=== PATIENT | female | born 1985 | race Caucasian/White ===

== ENCOUNTER 2025-06-09 11:23 | Outpatient (CLI) | payer BC, SELFPAY ==
--- OUTSIDE RECORDS SUMMARY | 2025-06-09 11:28 | XMS_ITS | Referral Summary ---
Author Organization [facility] Address [address] [place] [address] Care Team Providers Care Children Counselor Name Role Phone Other, Physician Nikita LOVING Primary Care Provi sylvain Unavailable Social History Tobacco Use Types Packs/Day Years Used Date Smoking Tobacco: Never Assessed Comments Unknown Sex and Gender Information Value Date Recorded Sex Assigned at Not on file Legal Sex Female 7:10 PM EDT Gender Identity Not on file Sexual Orientation Not on file Plan of Treatment Not on file Procedures Procedure Name Priority Date/Time Associated Diagnosis Comments CYTOLOGY DISASTER RECOVERY COORDINATOR Routine 01/04/2010 12:00 AM EDT from Last 3 Months or Most Recently Relevant to Health Maintenance Results * Cytology DISASTER RECOVERY COORDINATOR (01/04/2010 12:00 AM EDT) 01/04/2010 01/08/2010 9:1 9 AM EDT Narrative [facility] - 01/09/2010 3:12 PM EDT CYTOLOGY GYNECOLOGICAL REPORT Name: EMI JAMIL EPI#: [id number] Case #: [id number] Final Cytologic Diagnosis A. Cervical/Endocervical thinprep pap: Adequacy: Satisfactory for evaluation, endocervical transformation zone component present. Interpretation: Negative for intraepithelial lesion or malignancy. This specimen has been analyzed by the ThinPrep Imaging System (Text[employer].), an automated imaging and review system, which assists the immigration services officer and/or pathologist in evaluation of cells on Thinprep Pap tests. Electronically Signed Out By ADELAIDA Moreno(ASCP) Source of Specimen(s) A: Cervical/Endocervical thinprep pap Clinical History Date of Last Menstrual Period: 11/20/2009 Contraceptive History: OC/BCP Signed out at [facility], [address] [place] [address] [facility] Sporter[employer] Non-Formatted Report Louise Noland MD PATHOLOGY/CYTOLOGY ORDERA CLAIR Final Result [address] [address] from Last 3 Months or Most Recently Relevant to Health Maintenance Insurance [facility] [employer] [facility] [place] [id number] [employer] ALL OTHERS NOT MEDICARE [place] [id number] [employer] ALL OTHERS NOT MEDICARE Care Teams Children Counselor Relationship Specialty Start Date End Date Other, Physician MD Nikita PCP - General Internal Medicine 08/11/16
--- OUTSIDE RECORDS SUMMARY | 2025-06-09 11:28 | XMS_ITS | Encounter Summary ---
Author Organization [facility] [place] [address] Care Team Providers Care Correctional Corporal Name Role Phone Joel Heredia MD Unavailable Phillip Zamudio MD Primary Care Provider [phone] Ayana Curry APRN Primary Care Provider UnaPuja Snyder APRN Primary Care Provider [phone] Encounter Details Date Type Department Care Team (Late st Contact Info) Description 10/05/2019 Orders Only [facility] [address] [place] [id number] Yolanda Oropeza MD Social History Tobacco Use Types Packs/Day Years Used Date Smoking Tobacco: Never Smokeless Tobacco: Never Alcohol Use Standard Drinks/Week Comments No 0 (1 standard drink = 0.6 oz pur e alcohol) PHQ-2 Answer Date Recorded PHQ-2 Score 0 03/11/2019 Sexually Active Control Partners Comments Not Currently Male Comments No Sex and Gender Information Value Date Recorded Sex Assigned at Not on file Legal Sex Female 1:41 AM EDT Gender Identity Not on file Sexual Orientation Not on file documented as of this encounter Functional Status * Is the person deaf or does he/she have serious difficulty hearing? Answer Date of Assessment Author No 10/08/2018 2:48 PM Jeremy Kaur CMA * Is the person blind or does he/she have serious difficulty seeing even when wearing glasses? Answer Date of Assessment Author No 10/08/2018 2:48 PM Jeremy Kaur CMA * Does this person have serious difficulty walking or climbing stairs? Answer Date of Assessment Author No 10/08/2018 2:48 PM Jeremy Kaur CMA * Does this person have difficulty dressing or bathing? Answer Date of Assessment Author No 10/08/2018 2:48 PM Jeremy Kaur CMA * Because of a physical, mental or emotional condition, does this person have difficulty doing errands alone such as visiting a doctor's office or shopping? Answer Date of Assessment Author No 10/08/2018 2:48 PM Jeremy Kaur CMA documented as of this encounter Mental Status * Because of a physical, mental or emotional condition, does this person have serious difficulty concentrating, remembering or making decisions? Answer Entry Date Author No 10/08/2018 2:48 PM Jeremy Kaur CMA documented in this encounter Plan of Treatment Not on file documented as of this encounter Goals Goal Patient Goal Type Associated Problems Recent Progress Patient-Stated? Author Maintain a healthy diet, exercise regularly and maintain an ideal body weight General No Lyubov Sánchez, KALANI documented as of this encounter Procedures Procedure Name Priority Date/Time Associated Diagnosis Comments Advitech T&B TISSUE PANEL Routine 10/05/2019 7:53 AM EST documented in this encounter Results * Advitech T&B TISSUE PANEL (10/05/2019 7:53 AM EST) Pathologist [facility] [place] Result Diagnosis = Increased CD4:CD8 (7.4) without loss of barone-T-cell antigens. No flow immunophenotypic evidence of a B-cell lymphoproliferative disorder (see comments). Comments = B-cells are polyclonal and T-cells have no loss of T-cell antigens. The CD4:CD8 ratio is increased; this is a non-specific finding and can be seen in both reactive and neoplastic processes. There is no flow immunophenotypic evidence of a B-cell lymphoproliferative disorder. Hodgkin lymphoma, some large cell lymphomas, and non-hematopoietic tumors cannot be excluded by flow cytometry. Correlation with morphology, clinical history and other diagnostic information is recommended. Lymphocytes = T-cells (84% of lymphoid cells) show a CD4/CD8 ratio of about 7.8 without overt phenotypic abnormality. NK-cells (1% of lymphoid cells) are unremarkable. Mature B-cells (13% of lymphoid cells) are polyclonal (kappa:lambda 1.7). Monocytes = Monocytes co-express CD14 and CD64 without phenotypic abnormalities. Granulocytes = Granulocytes are phenotypically mature and without aberrant antigen expression. CD45 Dim = CD34+ cells are not detected. CD45 Neg = Non-hematopoietic cells, erythroids and cell debris. [facility] 10/05/2019 7:53 AM EST Narrative [facility] - 10/07/2019 10:10 AM EST Requesting Provider: Naveen Chand Specimen = [id number] Yolanda Oropeza MD PATHOLOGY ORDERABLES Final Res ult [facility] [address] [place] [address] documented in this encounter Visit Diagnoses Not on filedocumented in this encounter Additional Health Concerns Infection Onset Date Last Indicated Resolved Time R/O Influenza 10/05/2019 10/05/2019 10/06/2019 5:0 3 PM EST documented as of this encounter Care Teams Correctional Corporal Relationship Specialty Start Date End Date Phillip Zamudio MD [address] [place] [address] [place] [address] PCP - General Family Medicine 09/26/17 03/12/20 Ayana Curry, CUSHION ASSEMBLER [address] [place] [address] [place] [address] PCP - General Nurse Practitioner 03/13/2002/04 Puja Trujillo, BYRON [address] [place] [address] [place] [address] PCP - General Nurse Practitioner-Family 02/05/22 Joel Heredia MD [address] [place] [address] [place] [address] Physician Urology 12/17/15 documented as of this encounter
--- OUTSIDE RECORDS SUMMARY | 2025-06-09 11:28 | XMS_ITS | Clinical Summary ---
Author Organization [facility] Address [facility] [place] [address] Care Team Providers Care Highway Painter Helper Name Role Phone Hieu Padilla MD Primary Care Provider Aby Benitez Unavailable Unavailable Irvin Lyle MD Unavailable [phone] Allergies Active Allergy Reactions Criticality Noted Date Comments Ciprofloxacin Swelling 08/03/2020 FACE GETS HOT AND RED Topiramate Other (See Comments) 08/23/2020 FACE GETS RED Medications allopurinoL (ZYLOPRIM) 300 mg tablet Take 300 mg by mouth daily. Active CHOLECALCIFEROL , VITAMIN D3, PO Take 50,000 Units by mouth every 7 days (once weekly). Active acetaminophen (TYLENOL) 325 mg tablet Take 2 Tabs (650 mg total) by mouth every 6 hours. 60 Tab 1 0 Active ibuprofen (MOTRIN) 600 mg tablet Take 1 Tab (600 mg total) by mouth every 6 hours as needed for Pain. 60 Tab 1 0 Active polyethylene glycol (GLYCOLAX) 17 gram packet Take 1 Packet (17 g total) by mouth 2 times daily as needed. 14 Packet 1 0 Active Additional Information Patient not taking.Reported on 11/09/2023 montelukast (SINGULAIR) 10 mg Tablet Take 10 mg by mouth daily. Active loratadine (CLARITIN) 10 mg tablet Take 10 mg by mouth daily. Active cetirizine (ZyrTEC) 10 mg Tablet Take 10 mg by mouth daily. Active albuterol (VENTOLIN/PROAI R/PROVENTIL HFA) 90 mcg/actuation HFA Aerosol Inhaler Take 2 Puffs by inhalation every 6 hours. Active budesonide-glyc opyr-formoterol (Breztri Aerosphere) 160-9-4.8 mcg/actuation HFA Aerosol Inhaler Take 2 Inhalations by inhalation 2 times daily. Active omeprazole (PriLOSEC) 20 mg capsule Take 20 mg by mouth daily. Active fluticasone propionate (FLONASE) 50 mcg/actuation nasal spray 2 Sprays by EACH NOSTRIL route daily. 1 Each 4 Active levothyroxine (SYNTHROID) 75 mcg tablet Take 1 Tablet (75 mcg) by mouth daily. 30 Tablet 4 Active cyclobenzaprine (FLEXERIL) 5 mg tablet TAKE 1 TABLET BY MOUTH THREE TIMES DAILY FOR 5 DAYS NEEDED 3 Active levoFLOXacin (LEVAQUIN) 500 mg tablet Take 500 mg by mouth daily. Active Active Problems Problem Noted Date Diagnosed Date Chest pain, unspecified type 12/11/2023 Assessment & Plan (12/11/2023 11:47 AM EST): Atypical for CAD DDx = pleuritis vs pericarditis vs musculoskeletal -->assess inflammatory markers. If elevated, will elect to treat for possible pericardtis. If elevated will give high dose NSAIDs for 2 weeks and colchicine for 3 months. If negative and ongoing chest pain, will place on colchicine for 3 months. Family history of cardiomyopathy 12/11/2023 Assessment & Plan (12/11/2023 11:49 AM EST): -brother in his 40s with heart transplant at [facility] -I personally reviewed the images of her TTE from [facility] October 2023 showing: normal LV size and thickness, low normal LVEF 50%. Possible subtle and mild wall motion abnormality/hypokinesis of portion of the anterior, lateral wall. This is not obvious. -->we will obtain a cardiac MRI to assess biventricular function, assess for LGE and myocardial inflammation and assess the pericardium given her chest pain Mediastinal lymphadenopathy 12/11/2023 Assessment & Plan (12/11/2023 11:50 AM EST): -no known diagnosis of pulmonary sarcoidosis, though this has been entertained previously and had lymph node biopsies which were negative. -->cardiac MRI. Do not suspect sarcoidosis. Influenza A 11/04/2023 Status post laparoscopic hysterectomy 08/24/2020 Hypothyroidism (acquired) 10/15/20182023 Generalized anxiety disorder 07/02/2017 Family History Medical History Relation Name Comments Heart Surgery Brother Hypertension Father Hypertension Mother Other Mother brain aneurysm Anesthesia Complications Neg Hx Heart Problems Neg Hx Relation Name Status Comments Brother Father Mother Social History Tobacco Use Types Packs/Day Years Used Date Smoking Tobacco: Never Smokeless Tobacco: Never Tobacco Cessation:Counseling Given: No Comments:Not needed Alcohol Use Standard Drinks/Week Comments Not Currently 0 (1 standard drink = 0.6 oz pur e alcohol) occasional - rare Comments No Sex and Gender Information Value Date Recorded Sex Assigned at Not on file Legal Sex Female 5:56 PM EST Gender Identity Not on file Sexual Orientation Not on file Last Filed Vital Signs Vital Sign Reading Time Taken Comments Blood Pressure 100/68 12/11/2023 11:01 AM EST Pulse 76 12/11/2023 11:01 AM EST Temperature 36.6 C (97.8 F) 11/06/2023 11:40 AM EST Respiratory Rate 18 11/06/2023 11:40 AM EST Oxygen Saturation 94% 11/06/2023 11:40 AM EST Inhaled Oxygen Concentration - - Weight 85.3 kg (188 lb) 12/11/2023 11:01 AM EST Height 160 cm (5' 3 ) 12/11/2023 11:01 AM EST Body Mass Index 33.3 12/11/2023 11:01 AM EST Plan of Treatment Health Maintenance Due Date Last Done Comments Lipid Screening 2001 COVID-19 Vaccine ( season) 2024 01/10/2022, 08/02/2021, 11/14/2020, Additional history exists Depression Screening 10/19/2024 Influenza Vaccination (#1) 06/19/202507/10, 07/02/2018, 08/12/2016, Additional history exists Tetanus Vaccination (Every 10 Years) 02/19/2027 02/19/2017, 01/12/2015 Influenza Vaccination (Yearly) Discontinued 07/10/2021, 07/02/2018, 08/12/2016, Additional history exists HPV Vaccine Aged Out No longer eliluis enrique barrera based on patient's age to complete this [place] [address] [place] [address] [place] [address] ANTHEM Advance Directives For more information, please contact: [phone] * Full Code (Latest Code Status on File) Date Activated Date Inactivated Comments 11/04/2023 6:56 PM No automated c hest compression devices for VAD Patients * Full Code Date Activated Date Inactivated Comments 08/24/2020 2:06 PM 11/02/2023 5:08 PM No automated chest compression devices for VAD Patients Care Teams Highway Painter Helper Relationship Specialty Start Date End Date Hieu Padilla MD [address] [place] [address] [place] [address] PCP - General Family Medicine 08/18/20 Aby Benitez 09/17/21 Irvin Lyle MD [address] [place] [address] Obstetrics & Gynecology 10/26/22
--- OUTSIDE RECORDS SUMMARY | 2025-06-09 11:28 | XMS_ITS | Clinical Summary ---
Author Organization [facility] Address [address] [place] [address], [address] [place] [address] Care Team Providers Care Solar Panel Installer Name Role Phone Troy Webber MD Primary Care Provider Allergies No known active allergies Medications No known medications Immunizations Immunization Administration Dates Next Due Influenza Virus Vaccine 07/23/2010 Social History Tobacco Use Types Packs/Day Years Used Date Smoking Tobacco: Never Alcohol Use Standard Drinks/Week Comments Yes 0 (1 standard drink = 0.6 oz pur e alcohol) once everyother week Comments Unknown Sex and Gender Information Value Date Recorded Sex Assigned at Not on file Legal Sex Female 10:44 PM EST Gender Identity Not on file Sexual Orientation Not on file Last Filed Vital Signs Vital Sign Reading Time Taken Comments Blood Pressure 117/78 01/22/2011 2:27 PM EDT Pulse 93 01/22/2011 2:27 PM EDT Temperature 37.2 C (99 F) 01/22/2011 2:27 PM EDT Respiratory Rate 14 01/22/2011 2:27 PM EDT Oxygen Saturation 97% 01/22/2011 2:27 PM EDT Inhaled Oxygen Concentration - - Weight - - Height - - Body Mass Index - - Plan of Treatment Not on file Advance Directives * Full Code (Latest Code Status on File) Date Activated Date Inactivated Comments 01/21/2011 12:46 PM 01/22/2011 6:43 PM Care Teams Solar Panel Installer Relationship Specialty Start Date End Date Troy Webber MD [address] [place] [address] PCP - General 01/21/11
--- OUTSIDE RECORDS SUMMARY | 2025-06-09 11:28 | XMS_ITS | Clinical Summary ---
Author Organization [facility] Address [address] [facility] [place] [address] Phone Care Team Providers Care Wire Repairer Name Role Phone Joel Heredia MD Unavailable Allergies Active Allergy Reactions Criticality Noted Date Comments Ciprofloxacin Hives,Swelling 06/06/2014 Topiramate Other (See Comments) 01/04/2019 unknown Medications SYNTHROID 50 mcg Oral TabletIndication s:Hypothyroidism (acquired) Take 1 Tab by mouth daily. 30 Tab 2 8 Active glycopyrrolate/f ormoterol fum (BEVESPI AEROSPHERE INHL) Inhale into the lungs. Active promethazine-cod eine (PHENERGAN WITH CODEINE) 6.25-10 mg/5 mL Oral Syrup Take 5 mL by mouth every 6 hours. Active montelukast (SINGULAIR) 10 mg Oral Tablet Take 10 mg by mouth every evening. Active benzonatate (TESSALON) 100 mg Oral Capsule Take 100 mg by mouth 3 times daily as needed for Cough. Active ergocalciferol (VITAMIN D) 50,000 unit Oral Capsule Take 50,000 Units by mouth once a week. Active albuterol (PROVENTIL) 2.5 mg /3 mL (0.083 %) Inhl Solution for Nebulization inhale contents of 1 vial in nebulizer every 4 to 6 hours if needed 0 9 Active allopurinol (ZYLOPRIM) 100 mg Oral Tablet Take 100 mg by mouth daily. 0 9 Active predniSONE (DELTASONE) 10 mg Oral TabletIndication s:Unresolved pneumonia Take 1 Tab by mouth daily. 90 Tab 01 0 Active Additional Information Patient not taking.Reason: Therapy Completed, Reported on 10/16/2023 norethindrone (MICRONOR) 0.35 mg Oral TabletIndication s:Menorrhagia with irregular cycle Take 1 Tab by mouth daily. 28 Tab 11 0 Active Additional Information Patient not taking.Reason: Therapy Completed, Reported on 10/16/2023 allopurinoL (ZYLOPRIM) 300 mg Oral Tablet Take 300 mg by mouth daily. Active tiotropium (SPIRIVA) 18 mcg Inhl Capsule, w/Inhalation DeviceIndication s:Sarcoidosis/Lo ng Covid Inhale 18 mcg into the lungs daily. Indications: Sarcoidosis/Sander g Covid Active fluticasone propion-salmeter oL (ADVAIR DISKUS) 100-50 mcg/dose Inhl Disk with DeviceIndication s:Sarcoidosis/ Long Covid Inhale 2 Puffs into the lungs 2 times daily. Indications: Sarcoidosis/ Long Covid Active Active Problems Problem Noted Date Diagnosed Date Lung nodules 11/09/2020 Hypothyroidism (acquired) 10/15/2018 Generalized anxiety disorder 07/02/2017 Vaginal delivery 03/24/2017 Uterine contractions during 03/15/2017 Depression during 11/06/2016 Overview (11/06/2016): Zoloft started 11/06 (risks reviewed) Resolved Problems Problem Noted Date Diagnosed Date Resolved Date Placenta succenturiata in second trimester 11/17/2016 03/25/2017 Overview (11/17/2016): Evaluate at delivery for complete delivery of placenta screening encounter 09/15/2016 10/06/2016 Encounter for supervision of other normal , first trimester 08/18/2016 03/25/2017 Overview (03/12/2017): pt It's a Girl! Shayy Dating by 7 weeks u/s PNL's nml CF ok last preg Plans first trimester screen nml-Panorama S/p flu shot Order AFP - NML Anatomy nml, 3VC, post placenta - succenturiate lobe GCT 105 Mild anemia, rx iron (10.7/31.9) 34wk EFW 61%, cephalic - unable to see succ lobe - still evaluate after delivery History of maternal third de gree perineal laceration, currently in first trimester 08/18/2016 03/25/2017 Overview (01/04/2017): Had ML episiotomy / third degree lac with residual discomfort, is considering primary for delivery Reviewed at length with pt-->will plan to proceed with History of kidney stones 12/17/2015 Overweight (BMI 25.0-29.9) 12/17/2015 0 01/04/2017 Normal vaginal delivery 01/30/201511/20 False labor 01/14/2015 12/17/2015 with abdominal maxine n of right lower quadrant, antepartum 09/10/2014 09/22/2014 Supervision of normal first 07/05/2014 12/17/2015 Overview (11/03/2014): PNL wnl patient Early screen/nuchal wnl, MSAFP wnl CF neg Anatomy wnl x limited cardiac views --> rec repeat in 4 weeks (ordered) S/p flu Baby Boy Isaac Hyperemesis arising during 07/05/2014 09/22/2014 Overview (07/05/2014): Taking zofran 4mg am prn Immunizations Immunization Administration Dates Next Due Influenza Vaccine, Unspecified Formulation 07/02,08/12/2016,2015 Tdap 02/19/2017,01/12/2015 Surgical History Surgery Date Site/Laterality Comments LITHOTRIPSY WISDOM TOOTH EXTRACTION CHOLECYSTECTOMY CYSTOSCOPY BRONCHIAL ULTRASOUND 10/05/2019 N/A ENDOSCOPIC BRONCHIAL ULTRASOUND with fine needle aspiration of lymph nodes at station 7, precarinal, 11R, bronchus wash, and bronchoalveolar lavage; Surgeon: Naveen Diaz MD; Location: [facility]; Service: Endoscopy CHOLECYSTECTOMY ARLENE AND BSO 08/19/2020 - 09/17/2020 Medical History Medical History Date Comments History of kidney stones Allergy Chronic kidney disease Kidney st ones. Last was 2012. Anxiety Hypothyroidism (acquired) 10/15/2018 Shortness of breath Family History Medical History Relation Name Comments ADHD Brother 1 Alcohol Abuse Brother 2 Mental Illness Maternal Aunt Miscarriages / Stillbirths Maternal Aunt Cancer Maternal Grandfather Prostat e cancer. Prostate Cancer Maternal Grandfather Alcohol Abuse Maternal Grandmother Cancer Maternal Grandmother Lung ca ncer. Lung Cancer Maternal Grandmother Mental Illness Maternal Grandmother Alcohol Abuse Maternal Uncle Alcohol Abuse Mother Depression Mother Glaucoma Mother High Blood Pressure Mother Thyroid Disease Mother Heart Disease Paternal Grandfather Alzheimer's Disease Paternal Grandmother Coronary Art Dis Paternal Grandmother Dementia Paternal Grandmother Heart Disease Paternal Grandmother Relation Name Status Comments Brother 1 Alive Brother 2 Alive Father Alive Maternal Aunt Alive Maternal Grandfather Maternal Grandmother Maternal Uncle Mother Alive Paternal Grandfather Paternal Grandmother Social History Tobacco Use Types Packs/Day Years Used Date Smoking Tobacco: Never Smokeless Tobacco: Never Tobacco Cessation:Counseling Given: Not Answered Alcohol Use Standard Drinks/Week Comments Yes 0 (1 standard drink = 0.6 oz pur e alcohol) rarely PHQ-2 Answer Date Recorded PHQ-2 Score 0 03/11/2019 Sexually Active Control Partners Comments Not Currently Male Comments No Sex and Gender Information Value Date Recorded Sex Assigned at Not on file Legal Sex Female 1:41 AM EDT Gender Identity Not on file Sexual Orientation Not on file Obstetrics History Para Term AB IAB SAB Ectopic Multiple Livin g Live Births 2 2 2 0 2 2 Date Outcome GA Total Labor Labor/2nd/3rd Weight Sex Type Anes PTL Jessy A1 A5 Name Clin 2014 Term 39w 1d 0h 08m 0h 08m 7 lb 14 oz (3.572 kg) M Vag-S pont Epidur al N Livin g 8 9 Betty Taylor MD Delivery Location:[facility] Comments:none noted 2016 Term 39w 2d 0h 15m 0h 15m 7 lb 11.6 oz (3.505 kg) F Vag-S pont Epidur al N Livin g 9 9 BLEVI NS,EL NED TH Jony Mccarty MD Delivery Location:[facility] Comments:none Last Filed Vital Signs Vital Sign Reading Time Taken Comments Blood Pressure 118/68 10/16/2023 2:09 PM EST Pulse 74 10/16/2023 2:09 PM EST 98RA Temperature 36.7 C (98 F) 10/08/2019 1:07 PM EST Respiratory Rate 16 10/16/2023 2:09 PM EST Oxygen Saturation 97% 12/08/2019 3:11 PM EST ra @ rest Inhaled Oxygen Concentration - - Weight 83.5 kg (184 lb) 10/16/2023 2:09 PM EST Height 160 cm (5' 3 ) 2021 12:50 PM EDT Body Mass Index 32.59 2021 12:50 PM EDT Plan of Treatment Health Maintenance Due Date Last Done Comments Hepatitis B Vaccine (1 of 3 - 19+ 3-dose series) 2002 Annual Wellness Exam 10/08/2019 10/08/2018 Breast Cancer Screening 2023 COVID-19 Vaccine ( season) 2024 01/10/2022, 08/02/2021, 11/14/2020, Additional history exists Influenza Vaccine (#1) 2025 , 07/23/2022, 07/10/2021, Additional history exists DTaP/TDaP/Td (3 - Td or Tdap) 02/19/2027 02/19/2017, 01/12/2015 Meningococcal B Vaccine Aged Out No l onger eligible based on patient's age to complete this topic Pneumococcal Vaccine 0-49 Aged Out No longer eligible based on patient's age to complete this topic Goals Goal Patient Goal Type Associated Problems Recent Progress Patient-Stated? Author Maintain a healthy diet, exercise regularly and maintain an ideal body weight General No Lyubov Sánchez, A Insurance [employer] PPO ANTHEM PPO ANTHEM PPO [employer]GR[employer] INS AA Advance Directives For more information, please contact: [phone] * Full Code (Latest Code Status on File) Date Activated Date Inactivated Comments 03/24/2017 7:25 AM 03/26/2017 8:36 PM * Full Code Date Activated Date Inactivated Comments 01/18/2015 7:42 PM 01/21/2015 5:24 PM Care Teams Wire Repairer Relationship Specialty Start Date End Date Joel Heredia MD [address] [facility] [place] [address] Physician Urology 12/17/15
--- OUTSIDE RECORDS SUMMARY | 2025-06-09 11:28 | XMS_ITS | Clinical Summary ---
Author Organization Health Address [address] [place] [address] Care Team Providers Care Vice President Global Digital Marketing Name Role Phone Wilmer Yang Primary Care Provider Unavailabl e Source Comments This information has been disclosed to you from confidential records protectedfrom disclosure by state law. You shall make no further disclosure of thisinformation without the specific, written, and informed release of theindividual to whom it pertains, or as otherwise permitted by law. A generalauthorization for the release of medical or other information is not sufficientfor the purposes of therelease of HIV test results or diagnoses. [id number] [facility] Active Problems Problem Noted Date Diagnosed Date Migraine 10/05/2008 Overview (07/19/2015): ICD-10 Transition Allergic rhinitis 10/05/2008 Overview (07/19/2015): ICD-10 Transition Social History Tobacco Use Types Packs/Day Years Used Date Smoking Tobacco: Never Assessed Comments Unknown Sex and Gender Information Value Date Recorded Sex Assigned at Not on file Legal Sex Female 10:49 PM EST Gender Identity Not on file Sexual Orientation Not on file Plan of Treatment Not on file Care Teams Vice President Global Digital Marketing Relationship Specialty Start Date End Date Wilmer Yang PCP - General 07/27/08
--- OUTSIDE RECORDS SUMMARY | 2025-06-09 11:28 | XMS_ITS | Clinical Summary ---
Author Organization [facility] Address [address] [place] [address] Care Team Providers Care Pastry Assistant Name Role Phone Other, Physician Nikita LOVING Primary Care Provi sylvain Unavailable Social History Tobacco Use Types Packs/Day Years Used Date Smoking Tobacco: Never Assessed Comments Unknown Sex and Gender Information Value Date Recorded Sex Assigned at Not on file Legal Sex Female 7:10 PM EDT Gender Identity Not on file Sexual Orientation Not on file Plan of Treatment Health Maintenance Due Date Last Done Comments DTap,Tdap,and Td (1 - Tdap) 1994 HPV (1 - 3-dose SCDM series) 2010 Pap Screening 01/04/2013 01/04/2010, 09/21/2008 Mammogram Screening 2023 Influenza Vaccine (#1) 2025 RSV Vaccine (60+ or ) (1 - 1-dose 75+ series) 2058 Meningococcal conjugate janice nt 4 (MCV4) Aged Out No longer eligible b ased on patient's age to complete this topic Pneumococcal 0-49 Aged Out No longer eligible based on patient's age to complete this topic RSV Immunization (<20 months) Aged Out No longer eligible based on patient's age to complete this topic Procedures Procedure Name Priority Date/Time Associated Diagnosis Comments CYTOLOGY TRANSPORTATION DESIGN ENGINEER Routine 01/04/2010 12:00 AM EDT from Last 3 Months or Most Recently Relevant to Health Maintenance Results * Cytology TRANSPORTATION DESIGN ENGINEER (01/04/2010 12:00 AM EDT) 01/04/2010 01/08/2010 9:1 9 AM EDT Narrative [facility] - 01/09/2010 3:12 PM EDT CYTOLOGY GYNECOLOGICAL REPORT Name: SHAHLA JAMILZABETH EPI#: [id number] Case #: [id number] Final Cytologic Diagnosis A. Cervical/Endocervical thinprep pap: Adequacy: Satisfactory for evaluation, endocervical transformation zone component present. Interpretation: Negative for intraepithelial lesion or malignancy. This specimen has been analyzed by the ThinPrep Imaging System ([employer] an automated imaging and review system, which assists the bulk plant supervisor and/or pathologist in evaluation of cells on Thinprep Pap tests. Electronically Signed Out By ADELAIDA Moreno(ASCP) Source of Specimen(s) A: Cervical/Endocervical thinprep pap Clinical History Date of Last Menstrual Period: 11/20/2009 Contraceptive History: OC/BCP Signed out at [facility], [address] [place] [address] [facility] Non-Formatted Report Louise Noland MD PATHOLOGY/CYTOLOGY ORDERA CLAIR Final Result [place] [phone] from Last 3 Months or Most Recently Relevant to Health Maintenance Insurance [employer] NOT MEDICARE [employer] NOT MEDICARE Care Teams Pastry Assistant Relationship Specialty Start Date End Date Other, Physician MD Nikita PCP - General Internal Medicine 08/11/16
--- NOTE | 2025-06-09 11:30 | CT_ITS ---
APPROVED REPORT Strip Picker: CLINICAL INDICATION Chest Pain TECHNIQUE Image Acquisition: A 128 slice MDCT scanner ([employer] View) was used for data acquisition. A noncontrast coronary calcium scan was performed. A CT attenuation threshold of 130 Hounsfield units (HU) was used for the detection of calcium in contiguous voxels of 1 sq mm in area to be counted as individual lesions. Bolus tracking in the ascending aorta with a threshold of 180 HU was performed. Immediately afterwards, ECG synchronized cardiac CT was then performed from the cardiac base to apex using retrospective gating with ECG tube current modulation. A total of 85 mL of Isovue 370 mg/mL contrast medium was administered at 5 mL/sec followed by a saline flush using a biphasic injection protocol. A tube voltage of 120 KVp was used. The patient received the following medications prior to the cardiac CT. 50 mg of oral metoprolol. The average heart rate at the time of acquisition was 50 bpm and regular. Image Reconstruction Transaxial images were reconstructed at 0.67 mm slide thickness. Data was reviewed interactively on an advanced workstation capable of 2 and 3-dimensional displays in all conventional reconstruction formats, including multiplanar reformations, maximum intensity projections, curved multiplanar reformations, and volume rendered reconstructions. When applicable, selected routine images describing the relevant coronary anatomy and pathology were saved and sent to PACS. Complications None Technical Quality Overall image quality was good. Coronary artery opacification was adequate. Total DLP (Dose-Length Product) is 1536 mGy-cm. The reported value represents the total of one or more individual components during the CT acquisition of this date and at this time, and as such, the same value may appear in more than one CT report depending on the interpreting/reporting physicians. COMPARISON None FINDINGS CT Coronary Calcium Scoring LMA (Left Main Artery) = 0 LAD (Left Anterior Descending) = 0 LCX (Left Coronary Circumflex) = 0 RCA (Right Coronary Artery) = 0 Total Calcium Score = 0 using the AJ-130 method. The interpretation of the calcium heart score is based on the following continuum*: 0 = no calcified plaque detected (risk of coronary artery disease is very low ??? less than 5%) 1-10 = calcium detected in extremely minimal levels (risk of coronary diseases is still low ??? less than 10%) 11-100 = mild levels of plaque detected with certainty (mild or minimal narrowing of heart arteries is likely) 101-400 = definite,at least moderate levels of plaque detected (relatively high risk of a heart attack within 3-5 years) >401-999 = extensive levels of plaque detected (high risk of heart attack, high levels of vascular disease are present, high likelihood of at least one significant coronary narrowing) *The calcium heart score quantifies the burden of coronary calcification/plaque in the coronary arteries. The calcium heart score is not able to evaluate the presence or burden of non-calcified (i.e. soft) plaque. There is no identifiable calcification in the aortic valve, mitral annulus or mitral valve, pericardium, or myocardium. Coronary CT Angiography The coronary arterial system is right dominant. Quantitative Stenosis Grading: Left Main (LM): The left main originates normally from the left sinus of Valsalva. The LM bifurcates into the left anterior descending artery and left circumflex artery. The LM is patent with no evidence of atherosclerosis. Left Anterior Descending (LAD) and Diagonal Branches: The LAD gives off 2 diagonal branch(es). The LAD and its branches are patent with no evidence of atherosclerosis. There is no evidence of LAD-myocardial bridge. Left Circumflex (LCX) and Obtuse Marginals (OM): The LCX gives off 1 Obtuse Marginal (OM) branch(es). The LCX and its branches are patent with no evidence of atherosclerosis. Right Coronary Artery (RCA): The RCA originates normally from the right sinus of Valsalva. The RCA gives off a posterior descending artery (PDA) and posterolateral (PL) branches. The RCA and its branches are patent with no evidence of atherosclerosis. Non-Coronary Cardiac Findings: Analysis of the left ventricular (LV) structure and function was performed after 3-D reconstruction of the LV from axial images, with user-corrected automatic contouring for assessment of LV volumes and user-defined reconstruction from oblique planes for measurement of 3-D cardiac structure and function. -The left ventricle systolic function is normal. -There is no left atrial appendage filling defect. Two right pulmonary veins and two left pulmonary veins drain normally into the left atrium. -No pericardial thickening or calcification. -Central and branch pulmonary arteries in the [id number] are unremarkable. -Thoracic aorta within the visualized thoracic aortic-branches in the [id number] is unremarkable. Extracardiac Structures No significant extra-cardiac findings. Note, however, that this study is focused on the cardiac findings. IMPRESSION -Absence of coronary calcification with an Agatston score = 0 using the AJ-130 method. -No evidence of significant flow-limiting atherosclerosis of the coronary arteries. -No evidence of coronary anomalies or myocardial bridges. -CAD-RADS 0. Management recommendations per ACC/AHA guidelines*, as clinically appropriate. *Recommendations: CAD RADS 0: Reassurance. Consider non-atherosclerotic causes of chest pain. CAD RADS 1: Consider non-atherosclerotic causes of chest pain. Consider preventive therapy and risk factor modification. CAD RADS 2: Consider non-atherosclerotic causes of chest pain. Consider preventive therapy and risk factor modification, particularly for patients with nonobstructive plaque in multiple segments. CAD RADS 3: Consider further functional testing. Consider symptom-guided anti-ischemic and preventive pharmacotherapy as well as risk factor modification per published guideline statements. CAD RADS 4A: Consider further functional testing or invasive coronary angiography with revascularization per published guideline statements. Consider symptom-guided anti-ischemic and preventive pharmacotherapy as well as risk factor modification per published guideline statements. CAD RADS 4B: Invasive coronary angiography recommended with revascularization per published guideline statements. Consider symptom-guided anti-ischemic and preventive pharmacotherapy as well as risk factor modification per published guideline statements. CAD RADS 5: Consider invasive angiography and/or viability assessment with revascularization per published guideline statements. Consider symptom-guided anti-ischemic and preventive pharmacotherapy as well as risk factor modification per published guideline statements. CRITICAL RESULT None COMMUNICATION Per this written report The coronary and cardiac findings of this CCTA were reviewed, reported, and signed by David Sweet MD (Sales And Service Specialist). Conclusion Electronically signed by : Evie Sweet MD 06/09/2025 21:05:16
[2025-06-09 11:52] VITALS: BMI 31.3
[2025-06-09 12:10] VITALS: BP 116/68; PULSE 66; RESP 18; TEMP 36.1; O2SAT 100
[2025-06-09] MEDS: METOPROLOL TARTRATE 50MG TABLET PO (12:36)
[2025-06-09 12:48] LABS: Chloride 111 mmol/L (98-107); Potassium 4.3 mmoL/L (3.5-5.1); Sodium 142 mmol/L (136-145)
[2025-06-09 12:51] LABS: Anion Gap 10.3 mEq/L (5-15); Blood Urea Nitrogen 12 mg/dl (7-17); Calcium 8.4 mg/dl (8.4-10.2); Carbon Dioxide 25 mmol/L (22.0-30.0); Creatinine Clearance Estimated 134 mL/min (50-200); Creatinine,Serum 0.70 mg/dl (0.52-1.04); Estimated Glomerular Filt Rate 92 ml/min (>60); GFR (African American) 112 ML/MIN (>60); Glucose 95 mg/dl (74-100)
[2025-06-09 13:26] VITALS: BP 121/79; PULSE 66; RESP 16; O2SAT 99
[2025-06-09 13:29] VITALS: BP 119/80; PULSE 52; RESP 16; O2SAT 100
[2025-06-09 13:32] VITALS: BP 119/66; PULSE 58; RESP 18; O2SAT 100
[2025-06-09] MEDS: IOPAMIDOL-370 (76%);100ML BOTTLE 85 ML IV (13:39)
[2025-06-09] MEDS: 0.9 % SODIUM CHLORIDE 50 ML VIAL IV (13:39)
== END 2025-06-09 13:46 | disposition home or self-care (01) ==
PROVIDERS: Internal Medicine; PCP Physician Assistant; Visit Provider Registered Nurse
DX: I20.9 Angina pectoris, unspecified (principal)
CPT/HCPCS: 75574; 80048; Q9967